=== PATIENT | male | born 1960 | race Caucasian/White ===

== ENCOUNTER 2018-11-09 08:46 | Outpatient (CLI) | payer OTHER ==
--- NOTE | 2018-11-09 09:50 | CT ---
CT ABDOMEN AND PELVIS WITH CONTRAST: History: Left lower quadrant abdominal pain for the past 4-5 months. Technique: Multiple contiguous axial images were obtained in a CT of the abdomen and pelvis with cont rast. Coronal reformats were performed. FINDINGS: A subcentimeter hyperdensity in the right lobe of the liver is too small to definitely characterize a nd may represent a small cyst. The gallbladder, kidneys, adrenal glands, spleen, and pancreas are unr emarkable. No free air, free fluid, or stranding changes are seen in the abdomen or pelvis. The large and small bowel are unremarkable. No abdominal or pelvic lymphadenopathy are seen. The pros lei is enlarged. Degenerative changes are seen in the spine. There is a lipoma along the right lateral abdominal wall measuring 4.9 cm in size. The visualized inferior thorax is unremarkable. IMPRESSION: 1. No evidence of acute intraabdominal/pelvic abnormality. 2. Hepatic cysts. 3. Right abdominal wall lipoma. POS: [facility]
== END 2018-11-09 08:47 | disposition home or self-care (01) ==
LOC: SCSCT 08:46
PROVIDERS: ATTEND Family Medicine
DX: R10.84 Generalized abdominal pain (principal); K76.89 Other specified diseases of liver; D17.1 Benign lipomatous neoplasm of skin and subcutaneous tissue of trunk
CPT/HCPCS: 74177; 82565

== ENCOUNTER 2019-05-06 10:09 | Outpatient (CLI) | payer OTHER ==
--- NOTE | 2019-05-06 11:07 | MRI ---
LUMBAR SPINE MRI WITHOUT CONTRAST: Date: 05/06/2019 COMPARISON: 03/19/2011. HISTORY: Low back pain, left leg radiculopathy/weakness. TECHNIQUE: Multiplanar multisequence MR imaging of the lumbar spine obtained without contrast. FINDINGS: The sagittal STIR imaging demonstrates no focal area of osseous marrow edema. No significant anterolisthesis or retrolisthesis is seen within the lumbar spine. On the basis of 5 lumbar type vertebral bodies, conus medullaris terminates at the T12-L1 level. T12-L1: Mild disc space narrowing. Mild bilateral facet hypertrophy and anterior osteophyte formation with no significant central canal or neural foraminal stenosis. L1-2: Disc space narrowing and mild disc bulge. Mild bilateral facet hypertrophy. Mild anterior osteo phyte formation. No significant central canal or neural foraminal stenosis. L2-3: There is disc desiccation, disc space narrowing, and mild disc bulge. There is a disc herniatio n in the left paracentral region with mild inferior migration. Disc herniation measures in the 7 mm range and extends into the left lateral recess with significant left lateral recess stenosis. There i s mass effect on the exiting left L2 nerve root. No significant neural foraminal stenosis noted on either side. L3-4: There is disc space narrowing, disc desiccation, central annular tear, and mild disc bulge. No significant central canal or neural foraminal stenosis. L4-5: There is disc desiccation and mild bilateral facet hypertrophy. Small central annular tear. No significant central canal or neural foraminal stenosis. L5-S1: There is disc space narrowing and disc desiccation and mild disc bulge. Bilateral facet hypert rophy. Mild bilateral neural foraminal stenosis. No significant central canal stenosis. The imaged retroperitoneal structures appear grossly unremarkable. IMPRESSION: New disc herniation with inferior migration on the left at L2-3 in the paracentral region causing lef t lateral recess stenosis with mass effect on the left L2 nerve root. Transcribed Date/Time: 05/06/2019 11:45 AM
== END 2019-05-06 10:10 | disposition home or self-care (01) ==
LOC: TBSIIMAG 10:09
PROVIDERS: ATTEND Family Medicine
DX: M54.5 Low back pain (principal); M47.816 Spondylosis without myelopathy or radiculopathy, lumbar region; M48.061 Spinal stenosis, lumbar region without neurogenic claudication
CPT/HCPCS: 72148

== ENCOUNTER 2019-10-28 10:29 | Outpatient (CLI) | payer OTHER ==
--- NOTE | 2019-10-28 13:45 | MRI ---
MRI LUMBAR SPINE NONCONTRAST: HISTORY: Bilateral thigh pain Radiculopathy. COMPARISON: 05/06/2019. FINDINGS: Appropriate T1 marrow signal intensity of the lumbar vertebrae. Lumbar spine vertebral body height is maintained and there is no fracture. No significant STIR hyperintensity to suggest vertebral body edema or ligamentous injury. Appropriate signal intensity visualized paraspinal muscles. Appropriate signal intensity visualized s olid organs. Conus medullaris terminates at the upper aspect of L1. Spondylolisthesis: L1-L2: 2 mm of retrolisthesis. L2-L3: 4.7 mm of retrolisthesis. T12-L1:Adequate disc hydration. No significant central canal stenosis or significant neural foraminal narrowing. L1-L2:Adequate disc hydration. Mild loss of disc space height. Minimal left and right paracentral dis c bulges. Minimal central canal stenosis. Bilaterally, the neural foramina are patent. L2-L3:Disc desiccation with mild loss of disc space height. Broad-based disc bulge, ligament flavum t hickening and facet hypertrophy result in mild to moderate central canal stenosis. Mild right neural foraminal narrowing. Moderate left neural foraminal narrowing. Compared to the previous examin ation, the degree of central canal stenosis and foraminal narrowing has not significantly changed. Previously noted disc herniation in the left subarticular zone at L2-L3 is less evident. L3-L4:Disc desiccation with mild loss of disc space height. Broad-based disc bulge results in mild ce ntral canal stenosis. There is encroachment upon both subarticular zones, left greater than right. Mass effect without obscuration of either traversing L4 nerve root. Bilaterally, neural foramina are patent. L4-L5:Desiccation without significant loss of disc space height. Broad-based disc bulge with a left p aracentral posterior disc herniation with slight inferior disc extrusion into the left subarticular zone. Disc material abuts but does not obscure the traversing left L5 nerve root. No significant sten osis of the thecal sac or significant narrowing of the right subarticular zone. Bilaterally, the neural foramina are patent. Disc herniation with extrusion into the left subareolar zone has develope d since the previous exam. Previously, there was an annular tear noted at L4-L5. L5-S1:Disc desiccation with moderate loss of disc space height. No significant central canal stenosis . Mild bilateral foraminal narrowing. IMPRESSION: 1. Interval posterior disc herniation with left subarticular disc extrusion at L4-L5. Disc material a buts but does not obscure the traversing left L5 nerve root. 2. Persistent noted disc herniation in the left subarticular zone at L2-L3 is less evident. Moderate central canal stenosis at L2-L3. Transcribed Date/Time: 10/28/2019 2:28 PM
== END 2019-10-28 10:30 | disposition home or self-care (01) ==
LOC: SCSCT 10:29 → SCSMRI 10:30
PROVIDERS: ATTEND Neurological Surgery
DX: M54.16 Radiculopathy, lumbar region (principal); M51.26 Other intervertebral disc displacement, lumbar region
CPT/HCPCS: 72148

== ENCOUNTER 2019-12-14 07:51 | Outpatient (CLI) | payer OTHER ==
[2019-12-14 17:25] LABS: Hemoglobin 14.1 g/dL (14.0-18.0); Mean Corpuscular HGB CONC 35.1 g/dL (32.0-36.0); Mean Corpuscular Hemoglobin 31.2 pg (27.0-31.0); Mean Corpuscular Volume 88.9 fL (78.0-98.0); Mean Platelet Volume 9.9 fL (7.4-10.4); Platelet Count 154 thou/uL (130-400); Red Blood Cell (RBC) Count 4.53 mill/uL (4.70-6.10)
[2019-12-14 17:51] LABS: Anion Gap 11 mmol/L (10-20); BUN (Urea Nitrogen) 25 mg/dL (8.4-25.7); Calc. Creatinine Clearance 0 mL/min (70-130); Carbon Dioxide 29 mmol/L (23-31); Chloride 104 mmol/L (98-107); Estimated GFR-MDRD 43; Glucose 89 mg/dL (80-115); Potassium 4.1 mmol/L (3.5-5.1); Sodium 140 mmol/L (136-145)
== END 2019-12-14 07:52 | disposition home or self-care (01) ==
LOC: LABBT 07:51
PROVIDERS: ATTEND Neurological Surgery
DX: Z01.818 Encounter for other preprocedural examination (principal); M54.16 Radiculopathy, lumbar region
CPT/HCPCS: 80048; 85027; 93005; 93010

== ENCOUNTER → 2019-12-21 | Day surgery (SDC) | payer OTHER ==
[2019-12-14 15:44] VITALS: BMI 40.4
[~2019-12-21] MED LIST: Dexamethasone 20 MG/5 ML VIAL ONE; EPHEDRINE 25 MG/5 ML SYRINGE ONE; Fentanyl 100 MCG/2 ML VIAL ONE; Glycopyrrolate 0.2 MG/ML 5 ML SYRINGE ONE; HYDROcodone/Acetaminophen 5/325 mg Tablet ONE; Ketorolac Tromethamine 30 MG/ML VIAL ONE; Lidocaine 1% PF 5 ML VIAL ONE; Midazolam HCl 2 mg/2 ml Vial ONE; Morphine 4 MG/ML VIAL ONE; Ondansetron PF 4 MG/2 ML Vial ONE; PHENYLEPHRINE-NS 100 MCG/ML 10 ML SYRINGE ONE; PROPOFOL 200 MG/20 ML VIAL ONE; Rocuronium Bromide 10 MG/ML (10ML VIAL) ONE
--- NOTE | 2019-12-21 09:57 | OP ---
DATE OF PROCEDURE: 12/21/2019 [employer]KER: Vinita Mccoy PA-C PROCEDURE PERFORMED: L2-L3 laminectomy. DESCRIPTION OF PROCEDURE: The patient was brought to the operating room and intubated. He was rolled in a prone position on gel-filled chest rolls. An incision was made exposing L2 and L3 and the level was confirmed by x-ray. We performed complete L3 and inferior L2 laminectomy, completely decompressing the neural elements. The wound was then extensively irrigated and MAC hemostasis was secured. Vancomycin powder was applied and the wound was then closed in anatomic layers. Job ID: [id number]
== END ==
LOC: SDC 06:12
PROVIDERS: ATTEND Neurological Surgery
PROC: 01NB0ZZ Release Lumbar Nerve, Open Approach (ICD-10-PCS; principal; 2019-12-21)
DX: M48.061 Spinal stenosis, lumbar region without neurogenic claudication (principal); M51.16 Intervertebral disc disorders with radiculopathy, lumbar region; E03.9 Hypothyroidism, unspecified; E78.5 Hyperlipidemia, unspecified; F32.9 Major depressive disorder, single episode, unspecified; G47.30 Sleep apnea, unspecified; N40.0 Benign prostatic hyperplasia without lower urinary tract symptoms; Z79.899 Other long term (current) drug therapy; Z99.89 Dependence on other enabling machines and devices
CPT/HCPCS: 76000; J0690; J1100; J1885; J2001; J2250; J2270; J2405; J2704; J3010; J3370

== ENCOUNTER 2021-10-17 06:11 | Inpatient (IN) | payer BC, OTHER ==
[2021-10-17] MEDS ORDERED: Morphine 4 MG/ML VIAL ONE ×2 (07:18→09:27)
[2021-10-17] MEDS ORDERED: Diazepam 5 MG TAB ONE (07:43)
[2021-10-17] MEDS ORDERED: Orphenadrine Citrate 60 MG/2 ML VIAL IM SCH (07:45)
[2021-10-17] MEDS ORDERED: Diazepam 10 MG/2 ML SYRINGE ONE (07:46)
[2021-10-17 11:03] LABS: HBSAg Index 0.22 S/CO (0-0.99); HIV (1/2) Antibody/Antigen Non-Reactive (NonReactive); HIV 1/2 INDEX 0.15 S/CO (<1.00); Hep B Surf Ag Non-Reactive S/CO (NonReactive); Hep C IgG Ab Non-Reactive (NonReactive); Hep C Index 0.13 S/CO (0-0.79)
[2021-10-17] MEDS ORDERED: Ondansetron ODT 4 MG TAB SL PRN (11:30)
[2021-10-17] MEDS ORDERED: Acetaminophen 325 MG TAB PO PRN (11:30)
[2021-10-17] MEDS ORDERED: Ondansetron PF 4 MG/2 ML Vial IVP PRN (11:30)
[2021-10-17] MEDS ORDERED: HYDROcodone/Acetaminophen 10/325 mg Tablet PO SCH (12:45)
[2021-10-17] MEDS ORDERED: HYDROcodone/Acetaminophen 10/325 mg Tablet ONE (13:43)
[2021-10-17] MEDS ORDERED: Levothyroxine Sodium 75 MCG TAB PO SCH (14:15)
[2021-10-17] MEDS ORDERED: Polyethylene Glycol 3350 17 GM Packet PO SCH (14:30)
[2021-10-17] MEDS ORDERED: Lidocaine 5% Patch TD SCH (14:30)
[2021-10-17] MEDS ORDERED: DULoxetine 60 MG CAP PO SCH (14:45)
[2021-10-17] MEDS ORDERED: Bupropion 150 MG XL TAB PO SCH (14:45)
[2021-10-17] MEDS ORDERED: DULoxetine 30 MG CAP PO SCH (15:15)
[2021-10-17 15:16] LABS: SARS-CoV-2 NAA Rapid Test Not Detected (NotDetected)
[2021-10-17] MEDS ORDERED: Cyclobenzaprine 10 MG TAB ONE (15:27)
[2021-10-17] MEDS: Cyclobenzaprine 10 MG TAB PO SCH ×2 (15:38→21:16)
[2021-10-17] MEDS: Pregabalin 75 MG CAP PO SCH ×2 (15:38→21:16)
[2021-10-17 17:27] VITALS: BMI 43.9
[2021-10-17] MEDS: HYDROcodone/Acetaminophen 10/325 mg Tablet PO SCH (18:28)
[2021-10-17] MEDS ORDERED: (Lifitegrast [Xiidra] 1 EACH Droperette) FS SCH (21:00)
[2021-10-17] MEDS: Atorvastatin Calcium 40 MG TAB PO SCH (21:15)
[2021-10-17] MEDS: Tamsulosin HCl 0.4 MG CAP PO SCH (21:15)
[2021-10-18] MEDS: HYDROcodone/Acetaminophen 10/325 mg Tablet PO SCH ×2 (00:46→06:18)
[2021-10-18] MEDS: Transdermal Patch Removal TOP SCH (03:50)
[2021-10-18] MEDS: Levothyroxine Sodium 75 MCG TAB PO SCH (06:19)
[2021-10-18] MEDS ORDERED: Tramadol Hcl [Tramadol Hcl Er] 200 MG Tab.Er.24h PO SCH (09:00)
[2021-10-18] MEDS: Ibuprofen 800 MG TAB PO PRN (09:26)
[2021-10-18] MEDS: Bupropion 150 MG XL TAB PO SCH (09:27)
[2021-10-18] MEDS: Pregabalin 75 MG CAP PO SCH ×3 (09:27→21:51)
[2021-10-18] MEDS: Polyethylene Glycol 3350 17 GM Packet PO SCH (09:28)
[2021-10-18] MEDS: Metamucil PACK PO SCH (09:28)
[2021-10-18] MEDS ORDERED: Non-Formulary Item 1 EACH (Sumatriptan Succinate [Imitrex] 100 MG Tab) PO PRN (10:00)
[2021-10-18] MEDS: DULoxetine 30 MG CAP PO SCH (10:13)
[2021-10-18] MEDS: Cyclobenzaprine 10 MG TAB PO SCH ×3 (10:13→21:52)
[2021-10-18] MEDS: SUMAtriptan Succinate 50 MG TAB PO PRN ×2 (11:56→14:54)
[2021-10-18] MEDS: HYDROcodone/Acetaminophen 10/325 mg Tablet PO PRN ×3 (11:56→21:59)
[2021-10-18] MEDS: Lidocaine 5% Patch TD SCH (15:36)
[2021-10-18] MEDS: Promethazine 25 MG TAB PO PRN (15:36)
[2021-10-18] MEDS: Tamsulosin HCl 0.4 MG CAP PO SCH (21:51)
[2021-10-18] MEDS: Atorvastatin Calcium 40 MG TAB PO SCH (21:52)
[2021-10-19] MEDS: Transdermal Patch Removal TOP SCH (06:09)
[2021-10-19] MEDS: Levothyroxine Sodium 75 MCG TAB PO SCH (06:09)
[2021-10-19] MEDS: HYDROcodone/Acetaminophen 10/325 mg Tablet PO PRN ×3 (06:16→20:24)
[2021-10-19] MEDS: Diazepam 5 MG TAB PO PRN ×2 (06:48→15:46)
[2021-10-19] MEDS: Pregabalin 75 MG CAP PO SCH ×3 (08:16→20:22)
[2021-10-19] MEDS: Metamucil PACK PO SCH (08:17)
[2021-10-19] MEDS: Bupropion 150 MG XL TAB PO SCH (08:17)
[2021-10-19] MEDS: Cyclobenzaprine 10 MG TAB PO SCH ×3 (08:17→20:22)
[2021-10-19] MEDS: DULoxetine 30 MG CAP PO SCH (08:17)
[2021-10-19] MEDS ORDERED: traMADol HCl 50 MG TAB PO SCH (09:07)
[2021-10-19] MEDS: Polyethylene Glycol 3350 17 GM Packet PO SCH (09:33)
[2021-10-19] MEDS: traMADol HCl 50 MG TAB PO SCH ×2 (15:32→20:24)
[2021-10-19] MEDS: SUMAtriptan Succinate 50 MG TAB PO PRN (15:53)
[2021-10-19] MEDS: Promethazine 25 MG TAB PO PRN (15:54)
[2021-10-19] MEDS: Ibuprofen 800 MG TAB PO PRN (15:54)
[2021-10-19] MEDS: Lidocaine 5% Patch TD SCH (16:26)
[2021-10-19] MEDS: Atorvastatin Calcium 40 MG TAB PO SCH (20:22)
[2021-10-19] MEDS: Tamsulosin HCl 0.4 MG CAP PO SCH (20:24)
[2021-10-20] MEDS: Transdermal Patch Removal TOP SCH (02:55)
[2021-10-20] MEDS: HYDROcodone/Acetaminophen 10/325 mg Tablet PO PRN ×3 (05:35→19:48)
[2021-10-20] MEDS: Levothyroxine Sodium 75 MCG TAB PO SCH (05:35)
[2021-10-20] MEDS: Diazepam 5 MG TAB PO PRN ×2 (05:38→14:07)
[2021-10-20] MEDS: Cyclobenzaprine 10 MG TAB PO SCH ×3 (08:11→20:13)
[2021-10-20] MEDS: traMADol HCl 50 MG TAB PO SCH ×3 (08:11→20:11)
[2021-10-20] MEDS: Pregabalin 75 MG CAP PO SCH ×3 (08:12→20:13)
[2021-10-20] MEDS: Bupropion 150 MG XL TAB PO SCH (08:12)
[2021-10-20] MEDS: DULoxetine 30 MG CAP PO SCH (08:12)
[2021-10-20] MEDS: Metamucil PACK PO SCH (08:12)
[2021-10-20] MEDS: Polyethylene Glycol 3350 17 GM Packet PO SCH (09:10)
[2021-10-20] MEDS: Lidocaine 5% Patch TD SCH (14:09)
[2021-10-20] MEDS: SUMAtriptan Succinate 50 MG TAB PO PRN (20:10)
[2021-10-20] MEDS: Tamsulosin HCl 0.4 MG CAP PO SCH (20:14)
[2021-10-20] MEDS: Atorvastatin Calcium 40 MG TAB PO SCH (20:14)
[2021-10-20] MEDS: Ibuprofen 800 MG TAB PO PRN (20:17)
[2021-10-21] MEDS: Diazepam 5 MG TAB PO PRN ×2 (03:47→14:48)
[2021-10-21] MEDS: Transdermal Patch Removal TOP SCH (03:48)
[2021-10-21] MEDS: Levothyroxine Sodium 75 MCG TAB PO SCH (05:56)
[2021-10-21] MEDS: HYDROcodone/Acetaminophen 10/325 mg Tablet PO PRN ×3 (07:08→19:12)
[2021-10-21] MEDS: Bupropion 150 MG XL TAB PO SCH (09:18)
[2021-10-21] MEDS: Pregabalin 75 MG CAP PO SCH ×3 (09:18→20:50)
[2021-10-21] MEDS: traMADol HCl 50 MG TAB PO SCH ×3 (09:18→20:51)
[2021-10-21] MEDS: Cyclobenzaprine 10 MG TAB PO SCH ×3 (09:19→20:50)
[2021-10-21] MEDS: Metamucil PACK PO SCH (09:19)
[2021-10-21] MEDS: Polyethylene Glycol 3350 17 GM Packet PO SCH (09:19)
[2021-10-21] MEDS: DULoxetine 30 MG CAP PO SCH (10:38)
[2021-10-21 13:27] LABS: #Eosinphils 0.6 thou/uL (0.0-0.7); #Lymphocytes 1.7 thou/uL (1.20-3.40); #Monocytes 0.5 thou/uL (0.11-0.59); #Neutrophils 1.5 thou/uL (1.40-6.50); %Basophils 0.8 % (0.0-1.0); %Eosinophils 13.6 % (0.0-10.0); %Lymphocytes 39.3 % (21.0-51.0); %Neutrophils 35.2 % (42.0-75.0); Hemoglobin 13.4 g/dL (14.0-18.0); Mean Corpuscular Hemoglobin 30.8 pg (27.0-31.0); Mean Corpuscular Volume 93.5 fL (78.0-98.0); Mean Platelet Volume 8.3 fL (7.4-10.4); Platelet Count 147 thou/uL (130-400); RBC Distribution Width 11.9 % (11.5-14.5); Red Blood Cell (RBC) Count 4.34 mill/uL (4.70-6.10); White Blood Cell (WBC) Count 4.2 thou/uL (4.8-10.8)
[2021-10-21 13:49] LABS: ALT (SGPT) 34 U/L (8-55); AST (SGOT) 29 U/L (5-34); Albumin 3.8 g/dL (3.4-4.8); Alkaline Phosphatase 36 U/L (40-110); Anion Gap 11 mmol/L (10-20); BUN (Urea Nitrogen) 13 mg/dL (8.4-25.7); Bilirubin, Total 0.6 mg/dL (0.2-1.2); Calc. Creatinine Clearance 186 mL/min (70-130); Calcium 8.9 mg/dL (7.8-10.44); Carbon Dioxide 28 mmol/L (23-31); Chloride 103 mmol/L (98-107); Globulin 2.6 g/dL (2.4-3.5); Glucose 101 mg/dL (80-115); Potassium 3.8 mmol/L (3.5-5.1); Protein, Total 6.4 g/dL (5.8-8.1); Sodium 138 mmol/L (136-145)
[2021-10-21] MEDS: Lidocaine 5% Patch TD SCH (16:06)
[2021-10-21] MEDS: Atorvastatin Calcium 40 MG TAB PO SCH (20:50)
[2021-10-21] MEDS: Tamsulosin HCl 0.4 MG CAP PO SCH (20:51)
[2021-10-22] MEDS: Transdermal Patch Removal TOP SCH (03:36)
[2021-10-22] MEDS: Levothyroxine Sodium 75 MCG TAB PO SCH (06:27)
[2021-10-22] MEDS: Diazepam 5 MG TAB PO PRN ×2 (06:45→17:20)
[2021-10-22] MEDS: Bupropion 150 MG XL TAB PO SCH (08:44)
[2021-10-22] MEDS: Cyclobenzaprine 10 MG TAB PO SCH ×2 (08:44→17:20)
[2021-10-22] MEDS: Pregabalin 75 MG CAP PO SCH ×3 (08:44→21:49)
[2021-10-22] MEDS: DULoxetine 30 MG CAP PO SCH (08:44)
[2021-10-22] MEDS: Polyethylene Glycol 3350 17 GM Packet PO SCH (08:45)
[2021-10-22] MEDS: Metamucil PACK PO SCH (08:45)
[2021-10-22] MEDS: HYDROcodone/Acetaminophen 10/325 mg Tablet PO PRN ×2 (08:49→18:09)
[2021-10-22] MEDS: traMADol HCl 50 MG TAB PO SCH ×3 (13:28→21:48)
[2021-10-22] MEDS ORDERED: Cyclobenzaprine 10 MG TAB PO SCH (14:00)
[2021-10-22] MEDS: Lidocaine 5% Patch TD SCH (14:08)
[2021-10-22] MEDS: Atorvastatin Calcium 40 MG TAB PO SCH (21:49)
[2021-10-22] MEDS: Tamsulosin HCl 0.4 MG CAP PO SCH (21:50)
[2021-10-23] MEDS: Cyclobenzaprine 10 MG TAB PO SCH ×4 (00:30→23:57)
[2021-10-23] MEDS: Transdermal Patch Removal TOP SCH (03:17)
[2021-10-23] MEDS ORDERED: traMADol HCl 50 MG TAB PO SCH (04:18)
[2021-10-23] MEDS: traMADol HCl 50 MG TAB PO SCH ×4 (04:30→23:56)
[2021-10-23] MEDS: Pregabalin 75 MG CAP PO SCH ×4 (04:30→23:55)
[2021-10-23] MEDS: Levothyroxine Sodium 75 MCG TAB PO SCH (06:27)
[2021-10-23] MEDS: Bupropion 150 MG XL TAB PO SCH (08:30)
[2021-10-23] MEDS: DULoxetine 30 MG CAP PO SCH (08:33)
[2021-10-23] MEDS: Polyethylene Glycol 3350 17 GM Packet PO SCH (08:34)
[2021-10-23] MEDS: Metamucil PACK PO SCH (08:34)
[2021-10-23] MEDS: Diazepam 5 MG TAB PO PRN ×3 (08:41→23:57)
[2021-10-23] MEDS ORDERED: Pregabalin 75 MG CAP PO SCH (14:00)
[2021-10-23] MEDS: Lidocaine 5% Patch TD SCH (15:11)
[2021-10-23] MEDS ORDERED: Bisacodyl 10 MG SUPP PR SCH (20:00)
[2021-10-23] MEDS: Tamsulosin HCl 0.4 MG CAP PO SCH (20:48)
[2021-10-23] MEDS: Atorvastatin Calcium 40 MG TAB PO SCH (20:48)
[2021-10-24] MEDS: Transdermal Patch Removal TOP SCH (00:57)
[2021-10-24] MEDS: Levothyroxine Sodium 75 MCG TAB PO SCH (06:33)
[2021-10-24] MEDS: Pregabalin 75 MG CAP PO SCH ×3 (08:35→23:49)
[2021-10-24] MEDS: traMADol HCl 50 MG TAB PO SCH ×3 (08:36→23:48)
[2021-10-24] MEDS: Diazepam 5 MG TAB PO PRN ×3 (08:38→23:49)
[2021-10-24] MEDS: Bupropion 150 MG XL TAB PO SCH (08:38)
[2021-10-24] MEDS: DULoxetine 30 MG CAP PO SCH (08:39)
[2021-10-24] MEDS: Cyclobenzaprine 10 MG TAB PO SCH ×3 (08:39→23:49)
[2021-10-24] MEDS: Metamucil PACK PO SCH (08:41)
[2021-10-24] MEDS ORDERED: Bisacodyl 10 MG SUPP PR PRN (12:48)
[2021-10-24 14:08] LABS: SARS-CoV-2 PCR by NAA Not Detected (NotDetected)
[2021-10-24] MEDS: HYDROcodone/Acetaminophen 10/325 mg Tablet PO PRN (15:37)
[2021-10-24] MEDS: Polyethylene Glycol 3350 17 GM Packet PO SCH ×2 (15:39→15:43)
[2021-10-24] MEDS: Lidocaine 5% Patch TD SCH (15:41)
[2021-10-24] MEDS: Atorvastatin Calcium 40 MG TAB PO SCH (20:32)
[2021-10-24] MEDS: Tamsulosin HCl 0.4 MG CAP PO SCH (20:32)
[2021-10-25] MEDS: Levothyroxine Sodium 75 MCG TAB PO SCH (05:53)
[2021-10-25] MEDS: Transdermal Patch Removal TOP SCH (05:54)
[2021-10-25] MEDS: Metamucil PACK PO SCH (10:10)
[2021-10-25] MEDS: Polyethylene Glycol 3350 17 GM Packet PO SCH (10:10)
[2021-10-25] MEDS: Pregabalin 75 MG CAP PO SCH ×2 (10:12→17:37)
[2021-10-25] MEDS: DULoxetine 30 MG CAP PO SCH (10:14)
[2021-10-25] MEDS: Bupropion 150 MG XL TAB PO SCH (10:14)
[2021-10-25] MEDS: traMADol HCl 50 MG TAB PO SCH ×2 (10:15→17:38)
[2021-10-25] MEDS: Cyclobenzaprine 10 MG TAB PO SCH ×2 (10:16→17:37)
[2021-10-25] MEDS: Diazepam 5 MG TAB PO PRN ×2 (10:20→17:39)
[2021-10-25] MEDS: HYDROcodone/Acetaminophen 10/325 mg Tablet PO PRN (14:28)
[2021-10-25] MEDS: Lidocaine 5% Patch TD SCH (14:32)
[2021-10-25 20:08] VITALS: TEMP 98.4
[2021-10-25 20:12] VITALS: BP 150/102
== END 2021-10-25 20:02 | DRG 552 ==
LOC: ERS 06:11 → ERHOLD 11:01 → MSONC 16:36 → OBSVTOIN 16:42
PROVIDERS: ADMIT Family Medicine; ATTEND Family Medicine
DX: M54.50 Low back pain, unspecified (principal); Z68.41 Body mass index [BMI] 40.0-44.9, adult; G89.11 Acute pain due to trauma; G89.29 Other chronic pain; W10.9XXA Fall (on) (from) unspecified stairs and steps, initial encounter; Z20.822 Contact with and (suspected) exposure to COVID-19; K59.00 Constipation, unspecified; M51.36 Other intervertebral disc degeneration, lumbar region; K21.9 Gastro-esophageal reflux disease without esophagitis; M19.90 Unspecified osteoarthritis, unspecified site; E78.5 Hyperlipidemia, unspecified; G47.33 Obstructive sleep apnea (adult) (pediatric); E66.9 Obesity, unspecified; F32.A Depression, unspecified; G43.909 Migraine, unspecified, not intractable, without status migrainosus; Z99.81 Dependence on supplemental oxygen; Z79.899 Other long term (current) drug therapy; Z79.891 Long term (current) use of opiate analgesic; Z79.890 Hormone replacement therapy
CPT/HCPCS: 36415; 72131; 72192; 80053; 85025; 86803; 87340; 87389; 96372; 96374; 96376; G0378; J2270; J2360; J3360; Q0169; U0002; U0003; U0005

== ENCOUNTER 2024-02-08 18:45 | Observation (INO) | payer BC, MEDICARE ==
[2024-02-09 08:58] VITALS: TEMP 98.1
[2024-02-09 12:01] VITALS: BP 161/95; BMI 45.3
== END 2024-02-09 16:15 | disposition home or self-care (01) ==
LOC: ERS 18:45 → ERHOLD 02-09 00:43
PROVIDERS: ADMIT Family Medicine; ATTEND Family Medicine
DX: R55 Syncope and collapse (principal); I65.02 Occlusion and stenosis of left vertebral artery; E03.8 Other specified hypothyroidism; D72.819 Decreased white blood cell count, unspecified; E78.5 Hyperlipidemia, unspecified; K21.9 Gastro-esophageal reflux disease without esophagitis; G47.33 Obstructive sleep apnea (adult) (pediatric); G43.909 Migraine, unspecified, not intractable, without status migrainosus; K59.00 Constipation, unspecified; R73.9 Hyperglycemia, unspecified; Z68.42 Body mass index [BMI] 45.0-49.9, adult; E66.9 Obesity, unspecified; Z79.890 Hormone replacement therapy; Z79.899 Other long term (current) drug therapy; Z90.89 Acquired absence of other organs
CPT/HCPCS: 36415; 70496; 70498; 71045; 80053; 80061; 83735; 84436; 84443; 84481; 84484; 85025; 85379; 93005; 93880; G0378; J2272; Q9967